=== PATIENT | female | born 1985 | race Hispanic/Latino ===

== ENCOUNTER 2016-06-14 20:42 | Emergency (ER) | payer OTHER ==
[~2016-06-14] VITALS: Ht 157.5 cm; Wt 78.5 kg
[~2016-06-14 20:42] MED LIST: IBUPROFEN800 M1 PO; PREDNISONE 20MG20 MG PO; ZITHROMAX Z-PA250 M1 PO
[2016-06-14 20:45] VITALS: BP 128/89
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
[2016-06-14] MEDS ORDERED: NORCO 5-325 TA1 EACH PO (21:16)
[2016-06-14] MEDS ORDERED: IBUPROFEN600 M1 PO (21:16)
[2016-06-14] MEDS ORDERED: BACTROBAN15 GM TOP (21:16)
== END 2016-06-14 21:35 ==
LOC: ERH 20:42
DX: T22.212A Burn of second degree of left forearm, initial encounter (principal); X15.0XXA Contact with hot stove (kitchen), initial encounter; Y92.9 Unspecified place or not applicable; Y93.G1 Activity, food preparation and clean up
CPT/HCPCS: 90471; 90714; 96372; J1885

== ENCOUNTER → 2017-04-28 | Day surgery (SDC) | payer OTHER ==
[~2017-04-28] VITALS: Ht 157.5 cm; Wt 76.7 kg
[~2017-04-28] MED LIST changes: +ADVIL MIGRAINE200 M1 PO; +BACTROBAN15 GM TOP; +HYDROXYZINE HCL50 M1 PO; +IBUPROFEN600 M1 PO; +NORCO 5-325 TA1 EACH PO
--- NOTE | 2017-04-28 11:53 | Operative Report ---
See Addendum Operative/Inv Procedure Report Surgery Date: 04/28/17 Name of Procedure: Excision of right perineal hidradenitis Pre-Operative Diagnosis: Right perineal hidradenitis Post-Operative Diagnosis: Same Estimated Blood Loss: scant Surgeon/Middleware Systems Architect: Shira MELO,Killian Conway Anesthesia: general endotracheal tube Operative/Procedure Note Note: Patient was placed on the OR table supine, after successful induction of general anesthesia pt was repositioned into frog-leg, you could see that the lesion on the right aspect of the perineum had 2 components with an intervening bridge of normal skin. The lateral fistulous opening area was injected local anesthetic and then medially there was another deeper area rejected that as well and then made small approximately 2 cm elliptical incisions in both areas excising the skin, these 2 areas were connected underneath the used to curet to scrape out some of the fibrotic scar but also the granulation tissue cautery used for hemostasis we excised some thicker chronically granulating inflamed fibrotic tissue as well subdermally stopping at the edges where there was normal- appearing fat irrigated with the area with iodoform half-inch iodoform gauze tape and reapproximated the skin with interrupted 3-0 Vicryl sutures, leaving a small opening for the wick, followed by bacitracin and fluff and gauze. EBL minimal lap and sponge counts correct wound expectancy contaminated IV fluids crystalloid complications none patient tolerated the procedure well was awakened extubated and returned to the recovery room in satisfactory condition.
== END ==
LOC: STS 02:51
DX: L73.2 Hidradenitis suppurativa (principal); Z87.891 Personal history of nicotine dependence
CPT/HCPCS: 81025; 88305; J0690; J2250

== ENCOUNTER → 2017-07-06 | Day surgery (SDC) | payer OTHER ==
[2017-07-06 12:41] LABS: ABSOLUTE BASOPHIL COUNT 0 /CUMM (0.0-0.2); ABSOLUTE EOSINOPHIL COUNT 0.1 /CUMM (0.0-0.7); ABSOLUTE GRANULOCYTE CT 4.6 /CUMM (1.4-6.5); ABSOLUTE LYMPH COUNT 1.6 /CUMM (1.2-3.4); ABSOLUTE MONOCYTE COUNT 0.4 /CUMM (0.10-0.60); BASOPHIL % 0.3 % (0.0-2.0); GRANULOCYTE % 69.1 % (42.2-75.2); HEMATOCRIT 37.9 % (37-47); MEAN CORPUSCULAR HGB CONC 33.4 G/DL (33.0-37.0); MEAN PLATELET VOLUME 9.2 FL (7.4-10.4); PLATELET COUNT 310 /CUMM (130-400); RBC DISTRIBUTION WIDTH 13.8 % (11.5-14.5); RED BLOOD CELL CT 4.21 /CUMM (4.20-5.40); WHITE BLOOD CELL COUNT 6.7 /CUMM (4.8-10.8)
--- NOTE | 2017-07-10 14:21 | Operative Report ---
Operative/Inv Procedure Report Surgery Date: 07/06/17 Name of Procedure: Suction dilation and curettage for termination of Pre-Operative Diagnosis: Undesired Post-Operative Diagnosis: Same Estimated Blood Loss: 300 mL Surgeon/Senior Windows Engineer: Jairo Aguayo MD Anesthesia: local monitored anesthesi Specimens: POCs to pathology Complications: None Condition: stable to same day surgery Operative/Procedure Note Note: Patient was placed in dorsal supine position and general anesthesia was obtained without difficulty. She was then placed in dorsolithotomy position and prepped and draped in the usual sterile fashion. A sterile speculum was placed in the patient's vagina. A single-tooth tenaculum was applied to the anterior lip of the cervix. The cervix was serially dilated to accommodate the 10 mm suction curette. The suction curette was inserted into the uterus and attached to the tubing and the device then activated to clear the uterus of all products of conception. A moderate amount of products of conception was noted. The suction curette was then removed and sharp curettage was gently performed until a gritty texture was noted in all 4 quadrants. The suction curette was then reinserted to clear the uterus of all clots and debris. A total of 3 passes with the suction curette was performed. All instruments were removed from the patient's vagina and excellent hemostasis was noted. All counts were reported to be correct 2 and the patient was taken to the recovery room in stable condition. Findings: Moderate amount of POC's
== END ==
LOC: STS 07:00
PROVIDERS: Obstetrics & Gynecology
DX: Z33.2 Encounter for elective termination of pregnancy (principal); N83.209 Unspecified ovarian cyst, unspecified side; F17.200 Nicotine dependence, unspecified, uncomplicated
CPT/HCPCS: 36415; J2001